=== PATIENT | male | born 1970 | race Caucasian/White ===

== ENCOUNTER 2020-06-24 16:29 | Emergency (ER) | payer OTHER ==
[~2020-06-24] VITALS: Ht 185.4 cm; Wt 99.8 kg
--- OUTSIDE RECORDS SUMMARY | 2020-06-24 16:32 | XMS ---
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 Eddie has no Care Guidelines for this patient. Jez VISIT COUNT (12 MO.) 1 JANE Brunson TOTAL 1 NOTE: Visits indicate total known visits. ED/C VISIT TRACKING (12 MO.) 06/24/2020 16:31 JANE De [facility] [place] TYPE: Emergency COMPLAINT: - L INDEX FINGER LACERATION INPATIENT VISIT TRACKING (12 MO.) No inpatient visits to display in this time frame [id number]
== END 2020-06-24 17:27 | disposition home or self-care (01) ==
LOC: ED 16:29
DX: S61.211A Laceration without foreign body of left index finger without damage to nail, initial encounter (principal); W26.0XXA Contact with knife, initial encounter
CPT/HCPCS: 99282

== ENCOUNTER 2024-11-20 20:38 | Emergency (ER) | payer OTHER ==
[~2024-11-20] VITALS: Ht 185.4 cm; Wt 109.0 kg
[2024-11-20] MEDS ORDERED: TETRACAINE HCL 0.5% 4 ML BTL OU SCH (21:00)
[2024-11-20] MEDS ORDERED: ACULAR5 ML OS (21:25)
[2024-11-20] MEDS ORDERED: CIPROFLOXACIN 0.3% 5 ML HOME.PACK OPTH ONE (21:30)
[2024-11-20 21:36] VITALS: BP 167/99
== END 2024-11-20 21:36 | disposition home or self-care (01) ==
LOC: ED 20:38
DX: H18.822 Corneal disorder due to contact lens, left eye (principal); H10.9 Unspecified conjunctivitis
CPT/HCPCS: 99283